=== PATIENT | female | born 1930 | race Caucasian/White ===

== ENCOUNTER → 2018-10-18 | Outpatient (CLI) | payer MEDICARE ==
[2018-10-18 16:16] LABS: BILIRUBIN,URINE NEGATIVE (NEGATIVE); CLARITY,URINE CLEAR; COLOR,URINE YELLOW; GLUCOSE, URINE (UA) NEGATIVE (NEGATIVE); KETONES,URINE NEGATIVE (NEGATIVE); LEUKOCYTE ESTERASE ,URINE NEGATIVE (NEGATIVE); NITRITE,URINE NEGATIVE (NEGATIVE); PH,URINE 5.5 (5-9); PROTEIN,URINE NEGATIVE (NEGATIVE); UROBILINOGEN,URINE 0.2 MG/DL (NORMAL)
== END ==
LOC: LAB FS 15:48
PROVIDERS: ATTEND Pediatrics
DX: R82.90 Unspecified abnormal findings in urine (principal); R32 Unspecified urinary incontinence
CPT/HCPCS: 81000

== ENCOUNTER → 2019-03-14 | Outpatient (CLI) | payer MEDICARE ==
[2019-03-14 14:23] LABS: BACTERIA,URINE NEGATIVE /HPF; BILIRUBIN,URINE NEGATIVE (NEGATIVE); CLARITY,URINE CLEAR; COLOR,URINE YELLOW; GLUCOSE, URINE (UA) NEGATIVE (NEGATIVE); KETONES,URINE NEGATIVE (NEGATIVE); LEUKOCYTE ESTERASE ,URINE NEGATIVE (NEGATIVE); NITRITE,URINE NEGATIVE (NEGATIVE); PH,URINE 5.5 (5-9); PROTEIN,URINE NEGATIVE (NEGATIVE); WBC,URINE 0-2 /HPF
== END ==
LOC: LAB FS 14:00
PROVIDERS: ATTEND Pediatrics
DX: R30.0 Dysuria (principal); R53.1 Weakness
CPT/HCPCS: 81000

== ENCOUNTER → 2019-05-08 | Outpatient (CLI) | payer MEDICARE ==
--- NOTE | 2019-05-08 14:29 | Diagnostic Imaging Report ---
INDICATION: Bilateral knee pain. COMPARISON: None. FINDINGS: Multiple radiographic views of the bilateral knees were obtained. There is no evidence of acute fracture or dislocation on either side. Osseous structures are intact. Joint spaces are maintained. There are mild osteoarthritic changes consisting of joint space narrowing with osteophyte formations. These changes appear greatest involving the patellar trochlear joint on the right and the lateral tibiofemoral compartment on the left. There is no large joint effusion. No unexpected radiopaque foreign bodies are seen. IMPRESSION: 1. No acute fracture or dislocation of either knee. 2. Mild osteoarthritic changes. Dictated by: Dictated on workstation # [id number]
== END ==
LOC: RAD FS 13:55
PROVIDERS: ATTEND Pediatrics
DX: M17.0 Bilateral primary osteoarthritis of knee (principal)

== ENCOUNTER 2020-06-08 12:56 | Emergency (ER) | payer MEDICARE ==
--- NOTE | 2020-06-08 13:05 | ED General ---
General Chief Complaint: Unresponsive Stated Complaint: UNRESPONSIVE; LOW GLUCOSE Source of Information: Patient, EMS History of Present Illness Date Seen by Provider: Jun 08, 2020 Time Seen by Provider: 13:02 Initial Comments 89-year-old female brought in by EMS due to an episode of decreased responsiveness. EMS was called out because patient was staring off and nonresponsive. When EMS got patient loaded into the ambulance and checked her blood sugar they had a blood sugar reading of 15 and 16. They gave her an amp of D50. Recheck shows blood sugar 240. After her treatment patient is now back to her baseline. Patient reports that she feels fine. Report from custodial was that she's slowly declined all morning. Patient does not believe she ate breakfast or lunch. Patient denies feeling ill recently. Patient does not have any known diabetic her blood sugar issues and does not take insulin. Allergies and Home Medications Allergies Coded Allergies: Penicillins (Verified Allergy, Unknown, 06/08/20) Patient Home Medication List Home Medication List Reviewed: Yes Review of Systems Review of Systems Constitutional: see HPI; No chills, No fever EENTM: no symptoms reported Respiratory: no symptoms reported Cardiovascular: no symptoms reported Gastrointestinal: no symptoms reported Genitourinary: no symptoms reported Musculoskeletal: no symptoms reported Skin: no symptoms reported Psychiatric/Neurological: See HPI Hematologic/Lymphatic: No Symptoms Reported Past Ndwdbyl-Vxakea-Xwvjuz Hx Past Med/Social Hx: Reviewed Nursing Past Med/Soc Hx Physical Exam Vital Signs Vital Signs - First Documented 06/08/20 13:01 Temp 36.1 Pulse 77 Resp 20 Pulse Ox 98 O2 Delivery Room Air Capillary Refill : Height, Weight, BMI Height: '" Weight: lbs. oz. 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 II-XII Norm as Tested Skin: Normal Color, Warm/Dry Progress/Results/Core Measures Suspected Sepsis SIRS Temperature: Pulse: Respiratory Rate: Laboratory Tests 06/08/20 13:10: White Blood Count 8.1 Blood Pressure / Mean: Laboratory Tests 06/08/20 13:10: Creatinine 1.71H, Platelet Count 240, Total Bilirubin 0.3 Results/Orders Lab Results Laboratory Tests Test 06/08/20 13:05 06/08/20 13:10 06/08/20 13:25 06/08/20 13:45 Range/Units Glucometer 123 H 103 99 70-110 MG/DL White Blood Count 8.1 4.3-11.0 10^3/uL Red Blood Count 3.58 L 4.35-5.85 10^6/uL Hemoglobin 11.0 L 11.5-16.0 G/DL Hematocrit 34 L 35-52 % Mean Corpuscular Volume 94 80-99 FL Mean Corpuscular Hemoglobin 31 25-34 PG Mean Corpuscular Hemoglobin Concent 33 32-36 G/DL Red Cell Distribution Width 12.9 10.0-14.5 % Platelet Count 240 130-400 10^3/uL Mean Platelet Volume 10.7 H 7.4-10.4 FL Immature Granulocyte % (Auto) 1 % Neutrophils (%) (Auto) 73 42-75 % Lymphocytes (%) (Auto) 20 12-44 % Monocytes (%) (Auto) 6 0-12 % Eosinophils (%) (Auto) 1 0-10 % Basophils (%) (Auto) 0 0-10 % Neutrophils # (Auto) 5.9 1.8-7.8 X 10^3 Lymphocytes # (Auto) 1.6 1.0-4.0 X 10^3 Monocytes # (Auto) 0.5 0.0-1.0 X 10^3 Eosinophils # (Auto) 0.1 0.0-0.3 10^3/uL Basophils # (Auto) 0.0 0.0-0.1 10^3/uL Immature Granulocyte # (Auto) 0.0 0.0-0.1 10^3/uL Sodium Level 139 135-145 MMOL/L Potassium Level 4.4 3.6-5.0 MMOL/L Chloride Level 104 98-107 MMOL/L Carbon Dioxide Level 24 21-32 MMOL/L Anion Gap 11 5-14 MMOL/L Blood Urea Nitrogen 32 H 7-18 MG/DL Creatinine 1.71 H 0.60-1.30 MG/DL Estimat Glomerular Filtration Rate 28 BUN/Creatinine Ratio 19 Glucose Level 151 H 70-105 MG/DL Calcium Level 9.3 8.5-10.1 MG/DL Corrected Calcium 9.6 8.5-10.1 MG/DL Total Bilirubin 0.3 0.1-1.0 MG/DL Aspartate Amino Transf (AST/SGOT) 38 H 5-34 U/L Alanine Aminotransferase (ALT/SGPT) 21 0-55 U/L Alkaline Phosphatase 111 40-136 U/L Total Protein 6.5 6.4-8.2 GM/DL Albumin 3.6 3.2-4.5 GM/DL Test 06/08/20 14:09 06/08/20 14:55 06/08/20 15:37 06/08/20 15:54 Range/Units Glucometer 71 95 50 *L 83 70-110 MG/DL Test 06/08/20 16:24 06/08/20 16:53 06/08/20 17:02 Range/Units Glucometer 59 *L 50 *L 133 H 70-110 MG/DL My Orders Orders - HANEY,TELMA L DO Accucheck Stat ONCE (06/08/20 13:05) Ekg Tracing (06/08/20 13:05) Cbc With Automated Diff (06/08/20 13:05) Comprehensive Metabolic Panel (06/08/20 13:05) Ua Culture If Indicated (06/08/20 13:05) D5 1/2 Ns 1000 Ml Iv Solution (Dextrose (06/08/20 14:15) D50w (Emergency) Syringe (Dextrose 50% 5 (06/08/20 14:15) D50w (Emergency) Syringe (Dextrose 50% 5 (06/08/20 14:07) D50w (Emergency) Syringe (Dextrose 50% 5 (06/08/20 15:45) Dextrose 10% Iv Solution (D10w 250 Ml Iv (06/08/20 16:31) Dextrose 10% Iv Solution (D10w 250 Ml Iv (06/08/20 16:45) D50w (Emergency) Syringe (Dextrose 50% 5 (06/08/20 17:00) Medications Given in ED Current Medications Medications Dose Ordered Sig/Adan Route Start Time Stop Time Status Last Admin Dose Admin Dextrose 25 ml ONCE ONCE IV 06/08/20 14:15 06/08/20 14:16 DC 06/08/20 14:15 25 ML Dextrose 25 ml ONCE ONCE IV 06/08/20 15:45 06/08/20 15:46 DC 06/08/20 15:42 25 ML Dextrose 50 ml ONCE ONCE IV 06/08/20 17:00 06/08/20 17:01 DC 06/08/20 16:45 50 ML Vital Signs/I&O 06/08/20 13:01 Temp 36.1 Pulse 77 Resp 20 B/P (MAP) Pulse Ox 98 O2 Delivery Room Air Capillary Refill : Progress Note : Progress Note Patient's blood sugar was very labile with frequent fluctuations down to the 50s. She was given a couple amps of D50 was started on D5 evidence changed to D10. Due to patient's hypoglycemia with no history of oral glycemic medication or insulin she'll be transferred to her primary care provider Dr. dAler in the [facility] for further observation and treatment. Patient was transferred in stable condition Departure Impression Primary Impression: Hypoglycemia Disposition: XFER SHT-TRM HOSP Condition: Stable Transfer Transfer Reason: Patient preference Time Spoke to Accepting Phy: 16:02 Transfer Facility: [facility] Method of Transfer: EMS Departure-Patient Inst. Referrals: KAMRYN ADLER MD (PCP/Family) Primary Care Physician TELMA HANEY DO Jun 08, 2020 13:04
[2020-06-08 13:18] LABS: HEMATOCRIT 34 % (35-52); MEAN CORPUSCULAR HEMOGLOBIN 31 PG (25-34); MEAN CORPUSCULAR HGB CONC 33 G/DL (32-36); MEAN CORPUSCULAR VOLUME 94 FL (80-99); PLATELET COUNT 240 10^3/uL (130-400); WHITE BLOOD COUNT 8.1 10^3/uL (4.3-11.0)
[2020-06-08 13:19] LABS: BASOPHILS % (AUTO) 0 % (0-10); EOSINOPHILS # (AUTO) 0.1 10^3/uL (0.0-0.3); EOSINOPHILS % (AUTO) 1 % (0-10); LYMPHOCYTES # (AUTO) 1.6 X 10^3 (1.0-4.0); LYMPHOCYTES % (AUTO) 20 % (12-44); MEAN PLATELET VOLUME 10.7 FL (7.4-10.4); MONOCYTES # (AUTO) 0.5 X 10^3 (0.0-1.0); MONOCYTES % (AUTO) 6 % (0-12); NEUTROPHILS # (AUTO) 5.9 X 10^3 (1.8-7.8); NEUTROPHILS % (AUTO) 73 % (42-75)
[2020-06-08 14:02] LABS: POTASSIUM 4.4 MMOL/L (3.6-5.0)
[2020-06-08 14:03] LABS: ALBUMIN 3.6 GM/DL (3.2-4.5); BILIRUBIN,TOTAL 0.3 MG/DL (0.1-1.0); CALCIUM 9.3 MG/DL (8.5-10.1); CREATININE SERUM 1.71 MG/DL (0.60-1.30); TOTAL PROTEIN 6.5 GM/DL (6.4-8.2)
[2020-06-08] MEDS ORDERED: DEXTROSE 50% 50 ML (IMS) SYR ONE (14:07)
[2020-06-08] MEDS ORDERED: DEXTROSE 50% 50 ML (IMS) SYR IV ONE ×3 (14:15→17:00)
[2020-06-08] MEDS ORDERED: D5 1/2 NS 1000 ML IV SOLUTION 1,000 ML IV SCH (14:15)
--- NOTE | 2020-06-08 16:11 | NUR ---
1400: Attempted to call patient's son, Ousmane, to give an update. No answer received to call, message left with number to return phone call. 1610: Again attemped to call patient's son, Ousmane, no answer received to call, message left with number to return phone call.
[2020-06-08] MEDS ORDERED: DEXTROSE 10% IV ONE (16:31)
[2020-06-08] MEDS ORDERED: DEXTROSE 10% IV SOLUTION 250 ML IV SCH (16:45)
[2020-06-08 17:16] VITALS: BP 147/57
== END 2020-06-08 17:12 | disposition short-term general hospital (02) ==
LOC: EDUNIT# 12:56 → ER FS 12:57
DX: E16.2 Hypoglycemia, unspecified (principal); Z88.0 Allergy status to penicillin
CPT/HCPCS: 36415; 80053; 82962; 85025

== ENCOUNTER 2020-07-06 11:13 | Emergency (ER) | payer MEDICARE ==
[2020-07-06] MEDS ORDERED: FAMOTIDINE 20MG/2ML IV (PEPCID) IVP ONE (11:30)
[2020-07-06] MEDS ORDERED: ONDANSETRON 4 MG/2 ML (SDV) Z0FRAN IVP ONE (11:30)
--- NOTE | 2020-07-06 11:33 | Diagnostic Imaging Report ---
INDICATION: Chest pain. COMPARISON: None. FINDINGS: Single frontal view of the chest demonstrates normal heart size and pulmonary vascularity. The lungs are well aerated and clear. No large pleural effusion or pneumothorax is seen. The visualized osseous structures show no acute abnormalities. There is calcified aortic atherosclerosis. IMPRESSION: No acute cardiopulmonary process. Dictated by: Dictated on workstation # [id number]
--- NOTE | 2020-07-06 11:39 | ED Chest Pain ---
General Chief Complaint: General Problems/Pain Stated Complaint: CHEST PAIN; NAUSEA; ARRHYTHMIA Nursing Triage Note: Staff at [facility] reports patient has advanced dementia, oriented to person only. Staff reports that this morning, patient had walked to the dining room and clutched her chest. Staff states patient's "eyes rolled back in her head and her face turned bright red." Staff states when EMS arrived this morning, patients symptoms had resolved, vital signs were stable and patient refused transport. Staff reports patient walked to the dining room at noon and her symptoms returned, staff states they touched patient's chest and asked if it hurt and that patient replied yes. Nursing Sepsis Screen: No Definite Risk Source: patient, EMS, alf records, old records Exam Limitations: clinical condition (Dementia) History of Present Illness Date Seen by Provider: Jul 06, 2020 Time Seen by Provider: 11:14 Initial Comments This 89-year-old woman presents to the emergency room via EMS from [facility] with reported history as above. Patient has fairly advanced dementia and provides very little history. During assessment and evaluation she appears to have either some lower chest pain or upper abdominal pain. When asked, she denies having pain at this time or states "not too bad". She cannot localize pain when asked. She does claim tenderness in the epigastric region. She denies nausea. Allergies and Home Medications Allergies Coded Allergies: Penicillins (Verified Allergy, Unknown, 06/08/20) Patient Home Medication List Home Medication List Reviewed: Yes Review of Systems Review of Systems Constitutional: no symptoms reported EENTM: No Symptoms Reported Respiratory: No Symptoms Reported Cardiovascular: See HPI Gastrointestinal: See HPI Genitourinary: No Symptoms Reported Musculoskeletal: no symptoms reported Skin: no symptoms reported Psychiatric/Neurological: See HPI Endocrine: No Symptoms Reported Hematologic/Lymphatic: No Symptoms Reported Past Mhsjahc-Bpaxtu-Rpycok Hx Past Med/Social Hx: Reviewed and Corrections made Patient Social History Alcohol Use: Denies Use Smoking Status: Never a Smoker 2nd Hand Smoke Exposure: No Recent Infectious Disease Expo: No Recent Hopitalizations: No Seasonal Allergies Seasonal Allergies: No Past Medical History Surgeries: No Respiratory: No Cardiac: Yes Irregular Heartbeat Neurological: Yes Dementia Genitourinary: No Gastrointestinal: No Musculoskeletal: No Endocrine: No HEENT: No Cancer: No Psychosocial: No Integumentary: No Blood Disorders: Yes (Vitamin B12 deficiency) Physical Exam Vital Signs Vital Signs - First Documented 07/06/20 11:19 Temp 35.8 Pulse 93 Resp 20 B/P (MAP) 125/65 (85) Pulse Ox 94 O2 Delivery Room Air Capillary Refill : Less Than 3 Seconds Height, Weight, BMI Height: '" Weight: lbs. oz. kg; BMI Method: General Appearance: WD/WN, Mild Distress (Appears mildly uncomfortable, anxious) HEENT: PERRL/EOMI, Normal ENT Inspection Neck: Normal Inspection Respiratory: Chest Non Tender, Lungs Clear, Normal Breath Sounds, No Accessory Muscle Use, No Respiratory Distress Cardiovascular: No Edema, No Murmur, Irregularly Irregular Gastrointestinal: Normal Bowel Sounds, Soft; No Distended; Tenderness (Mild in the epigastrium) Extremity: Normal Inspection, Non Tender, No Calf Tenderness, No Pedal Edema Neurologic/Psychiatric: Alert, No Motor/Sensory Deficits, Other (Mildly anxious, disoriented due to baseline dementia) Skin: Normal Color, Warm/Dry Progress/Results/Core Measures Results/Orders Lab Results Laboratory Tests Test 07/06/20 11:26 07/06/20 11:33 07/06/20 13:07 Range/Units White Blood Count 8.6 4.3-11.0 10^3/uL Red Blood Count 4.04 L 4.35-5.85 10^6/uL Hemoglobin 12.4 11.5-16.0 G/DL Hematocrit 39 35-52 % Mean Corpuscular Volume 97 80-99 FL Mean Corpuscular Hemoglobin 31 25-34 PG Mean Corpuscular Hemoglobin Concent 32 32-36 G/DL Red Cell Distribution Width 13.4 10.0-14.5 % Platelet Count 216 130-400 10^3/uL Mean Platelet Volume 10.6 H 7.4-10.4 FL Immature Granulocyte % (Auto) 0 % Neutrophils (%) (Auto) 66 42-75 % Lymphocytes (%) (Auto) 24 12-44 % Monocytes (%) (Auto) 8 0-12 % Eosinophils (%) (Auto) 1 0-10 % Basophils (%) (Auto) 1 0-10 % Neutrophils # (Auto) 5.7 1.8-7.8 X 10^3 Lymphocytes # (Auto) 2.1 1.0-4.0 X 10^3 Monocytes # (Auto) 0.7 0.0-1.0 X 10^3 Eosinophils # (Auto) 0.1 0.0-0.3 10^3/uL Basophils # (Auto) 0.0 0.0-0.1 10^3/uL Immature Granulocyte # (Auto) 0.0 0.0-0.1 10^3/uL Prothrombin Time 13.0 12.2-14.7 SEC INR Comment 1.0 0.8-1.4 Activated Partial Thromboplast Time 26 24-35 SEC Sodium Level 142 135-145 MMOL/L Potassium Level 4.8 3.6-5.0 MMOL/L Chloride Level 107 98-107 MMOL/L Carbon Dioxide Level 21 21-32 MMOL/L Anion Gap 14 5-14 MMOL/L Blood Urea Nitrogen 25 H 7-18 MG/DL Creatinine 1.60 H 0.60-1.30 MG/DL Estimat Glomerular Filtration Rate 30 BUN/Creatinine Ratio 16 Glucose Level 123 H 70-105 MG/DL Calcium Level 9.9 8.5-10.1 MG/DL Corrected Calcium 9.8 8.5-10.1 MG/DL Magnesium Level 2.1 1.6-2.4 MG/DL Total Bilirubin 0.6 0.1-1.0 MG/DL Aspartate Amino Transf (AST/SGOT) 24 5-34 U/L Alanine Aminotransferase (ALT/SGPT) 10 0-55 U/L Alkaline Phosphatase 105 40-136 U/L Myoglobin 100.9 H 10.0-92.0 NG/ML Troponin I < 0.30 < 0.30 <0.30 NG/ML C-Reactive Protein 1.03 H <0.50 MG/DL Total Protein 7.3 6.4-8.2 GM/DL Albumin 4.1 3.2-4.5 GM/DL Lipase 31 8-78 U/L Urine Color YELLOW Urine Clarity SLT CLOUDY Urine pH 6.0 5-9 Urine Specific [place] 1.020 1.016-1.022 Urine Protein NEGATIVE NEGATIVE Urine Glucose (UA) NEGATIVE NEGATIVE Urine Ketones NEGATIVE NEGATIVE Urine Nitrite NEGATIVE NEGATIVE Urine Bilirubin NEGATIVE NEGATIVE Urine Urobilinogen 0.2 < = 1.0 MG/DL Urine Leukocyte Esterase NEGATIVE NEGATIVE Urine RBC (Auto) NEGATIVE NEGATIVE Urine RBC NONE /HPF Urine WBC 0-2 /HPF Urine Squamous Epithelial Cells NONE /HPF Urine Crystals PRESENT H /LPF Urine Amorphous Sediment FEW MARLENY URATES H /LPF Urine Bacteria NEGATIVE /HPF Urine Casts PRESENT /LPF Urine Hyaline Casts 2-5 H /LPF Urine Mucus SMALL H /LPF Urine Culture Indicated NO My Orders Orders - ELSI CASTELLANOS MD Cbc With Automated Diff (07/06/20 11:17) Magnesium (07/06/20 11:17) Chest 1 View Ap/Pa Only (07/06/20 11:17) Ekg Tracing (07/06/20 11:17) Comprehensive Metabolic Panel (07/06/20 11:17) Myoglobin Serum (07/06/20 11:17) Protime With Inr (07/06/20 11:17) Partial Thromboplastin Time (07/06/20 11:17) O2 (07/06/20 11:17) Monitor-Rhythm Ecg Trace Only (07/06/20 11:17) Ed Iv/Invasive Line Start (07/06/20 11:17) Lipase (07/06/20 11:17) Troponin I Fs (07/06/20 11:17) Famotidine Injection (Pepcid Injection) (07/06/20 11:30) Ondansetron Injection (Zofran Injectio (07/06/20 11:30) Ua Culture If Indicated (07/06/20 11:17) Crp Fs (07/06/20 11:17) Ekg Tracing (07/06/20 11:30) Ns Iv 1000 Ml (Sodium Chloride 0.9%) (07/06/20 12:30) Troponin I Fs (07/06/20 13:30) Medications Given in ED Current Medications Medications Dose Ordered Sig/Adan Route Start Time Stop Time Status Last Admin Dose Admin Sodium Chloride 1,000 ml @ 0 mls/hr Q0M ONCE IV 07/06/20 12:30 07/06/20 12:31 DC 07/06/20 13:02 1,000 MLS/HR Vital Signs/I&O 07/06/20 07/06/20 11:19 15:00 Temp 35.8 Pulse 93 97 Resp 20 23 B/P (MAP) 125/65 (85) 119/66 Pulse Ox 94 91 O2 Delivery Room Air Room Air Blood Pressure Mean: 85 Progress Progress Note #1: Time: 11:42 Progress Note Patient is receiving Zofran and Pepcid due to suspicion of GI etiology. 2 EKGs were obtained and both show a sinus arrhythmia with PVCs/PACs. Patient does have a noted history of unspecified arrhythmia. No overt ST elevation. Labs are pending. Progress Note #2: Time: 12:34 Progress Note Patient is alert and talkative at this time. She has no complaints. When I specifically asked about abdominal or chest pain, she states "not too good, not too bad". She exhibited no tenderness on palpation of the abdomen. Orthostatic blood pressure on standing was not significantly changed. She did not exhibit symptoms upon standing. She does have episodic tachycardia when she has multiple premature beats and rapid sequence. I spoke with her primary care provider, Dr. Tatum. He states no known significant cardiac history. We are going to obtain a repeat troponin and administer a liter of IV normal saline. Progress Note #3: Time: 14:33 Progress Note Repeat troponin was unremarkable. We did hydrate the patient with 1 L of IV fluid. We then got her up and walked her about 70 to 80 feet. She did very well with this and was actually singing while walking. She had no further episodes. I discussed the situation with patient's son Mireille. He wanted his brother to him to be made aware of the situation. We have not been able to get in touch with him. I did call Dr. Tatum and discussed the situation with him. He was made aware of the situation and the patient's sinus arrhythmia. He would like her to follow-up in the outpatient setting and based on prior discussions with family does not believe they would want admission for this issue. We are working on discharging her back to the alf. Patient remains happy and comfortable. EKG #1: EKG Time: 11:12 Rate: 101 Comment Probable sinus arrhythmia with PAC present. Minimal ST depression with no ST elevation. EKG #2: EKG Time: 11:28 Rate: 118 Comment Sinus tachycardia with multiple premature beats. No ST elevation. Minimal ST depression. Diagnostic Imaging Diagonstic Imaging: Xray Plain Films/CT/US/NM/MRI: chest Comments Chest x-ray viewed by me and report reviewed. See report below: NAME: YOEL GUZMAN Sampson [facility] REC#: [id number] PT STATUS: REG ER : 1932 PHYSICIAN: ELSI CASTELLANOS MD ADMIT DATE: 07/06/20/ER FS Draft Date of Exam:07/06/20 CHEST 1 VIEW AP/PA ONLY INDICATION: Chest pain. COMPARISON: None. FINDINGS: Single frontal view of the chest demonstrates normal heart size and pulmonary vascularity. The lungs are well aerated and clear. No large pleural effusion or pneumothorax is seen. The visualized osseous structures show no acute abnormalities. There is calcified aortic atherosclerosis. IMPRESSION: No acute cardiopulmonary process. Dictated on workstation # [id number] Dict: 07/06/20 1131 Trans: 07/06/20 1133 [id number] Interpreted by: STEFANIE CHÁVEZ MD Departure Impression Primary Impression: Sinus arrhythmia Additional Impressions: Epigastric discomfort Advanced dementia Disposition: 01 HOME, SELF-CARE Condition: Stable Departure-Patient Inst. Decision time for Depature: 14:21 Referrals: KAMRYN TATUM MD (PCP/Family) Primary Care Physician Patient Instructions: Dementia (DC) Add. Discharge Instructions: Continue current medications and other directed care. Follow-up with Dr. Tatum as soon as possible. Encourage plenty of clear liquids to stay well-hydrated. Return to the emergency room for worsening symptoms. Call for questions or concerns. All discharge instructions reviewed with patient and/or family. Voiced unde rstanding. Copy Copies To 1: KAMRYN TATUM MD, JOSHUA T MD Jul 06, 2020 11:39
[2020-07-06 11:48] LABS: HEMATOCRIT 39 % (35-52); HEMOGLOBIN 12.4 G/DL (11.5-16.0); MEAN CORPUSCULAR HEMOGLOBIN 31 PG (25-34); WHITE BLOOD COUNT 8.6 10^3/uL (4.3-11.0)
[2020-07-06 11:49] LABS: BASOPHILS % (AUTO) 1 % (0-10); EOSINOPHILS # (AUTO) 0.1 10^3/uL (0.0-0.3); EOSINOPHILS % (AUTO) 1 % (0-10); LYMPHOCYTES # (AUTO) 2.1 X 10^3 (1.0-4.0); LYMPHOCYTES % (AUTO) 24 % (12-44); MEAN CORPUSCULAR HGB CONC 32 G/DL (32-36); MEAN CORPUSCULAR VOLUME 97 FL (80-99); MEAN PLATELET VOLUME 10.6 FL (7.4-10.4); MONOCYTES # (AUTO) 0.7 X 10^3 (0.0-1.0); MONOCYTES % (AUTO) 8 % (0-12); NEUTROPHILS # (AUTO) 5.7 X 10^3 (1.8-7.8); NEUTROPHILS % (AUTO) 66 % (42-75); PLATELET COUNT 216 10^3/uL (130-400)
[2020-07-06 12:07] LABS: BILIRUBIN,TOTAL 0.6 MG/DL (0.1-1.0); CALCIUM 9.9 MG/DL (8.5-10.1); CREATININE SERUM 1.6 MG/DL (0.60-1.30); MAGNESIUM 2.1 MG/DL (1.6-2.4); POTASSIUM 4.8 MMOL/L (3.6-5.0)
[2020-07-06 12:08] LABS: ALBUMIN 4.1 GM/DL (3.2-4.5); TOTAL PROTEIN 7.3 GM/DL (6.4-8.2)
[2020-07-06 12:13] LABS: AMORPHOUS SEDIMENT,UR FEW AMOR URATES /LPF; BACTERIA,URINE NEGATIVE /HPF; BILIRUBIN,URINE NEGATIVE (NEGATIVE); CLARITY,URINE SLT CLOUDY; COLOR,URINE YELLOW; GLUCOSE, URINE (UA) NEGATIVE (NEGATIVE); KETONES,URINE NEGATIVE (NEGATIVE); LEUKOCYTE ESTERASE ,URINE NEGATIVE (NEGATIVE); NITRITE,URINE NEGATIVE (NEGATIVE); PROTEIN,URINE NEGATIVE (NEGATIVE); WBC,URINE 0-2 /HPF
[2020-07-06] MEDS ORDERED: NS IV 1000 ML 1,000 ML IV ONE (12:30)
--- NOTE | 2020-07-06 13:49 | NUR ---
Patient ambulated in the hallway with walker and standby assist, heart rate 118 while walking. Heart rate 135-144 briefly after getting back in bed, then down to 98-103.
--- NOTE | 2020-07-06 14:29 | NUR ---
Contacted Jannet at [facility], she has an alternate phone number for Ousmane to be paged at work. Jannet states Ousmane will be able to take patient back to [facility] at 4 pm after he is off work.
[2020-07-06 15:00] VITALS: BP 119/66
== END 2020-07-06 15:17 | disposition home or self-care (01) ==
LOC: EDUNIT# 11:13 → ER FS 11:14
DX: I49.8 Other specified cardiac arrhythmias (principal); R10.13 Epigastric pain; F03.90 Unspecified dementia, unspecified severity, without behavioral disturbance, psychotic disturbance, mood disturbance, and anxiety; F41.9 Anxiety disorder, unspecified; Z88.0 Allergy status to penicillin
CPT/HCPCS: 36415; 71045; 80053; 81000; 83690; 83735; 83874; 84484; 85025; 85610; 85730; 86141; 93041

== ENCOUNTER 2020-07-27 16:57 | Emergency (ER) | payer MEDICARE ==
[2020-07-27 17:07] VITALS: BP 132/62
[2020-07-27 17:21] LABS: BASOPHILS # (AUTO) 0.1 10^3/uL (0.0-0.1); BASOPHILS % (AUTO) 1 % (0-10); EOSINOPHILS # (AUTO) 0.1 10^3/uL (0.0-0.3); EOSINOPHILS % (AUTO) 1 % (0-10); HEMATOCRIT 41 % (35-52); HEMOGLOBIN 13.1 G/DL (11.5-16.0); LYMPHOCYTES # (AUTO) 3.7 X 10^3 (1.0-4.0); LYMPHOCYTES % (AUTO) 40 % (12-44); MEAN CORPUSCULAR HEMOGLOBIN 31 PG (25-34); MEAN CORPUSCULAR HGB CONC 32 G/DL (32-36); MEAN CORPUSCULAR VOLUME 95 FL (80-99); MEAN PLATELET VOLUME 10.4 FL (7.4-10.4); MONOCYTES # (AUTO) 0.6 X 10^3 (0.0-1.0); MONOCYTES % (AUTO) 7 % (0-12); NEUTROPHILS # (AUTO) 4.7 X 10^3 (1.8-7.8); NEUTROPHILS % (AUTO) 51 % (42-75); PLATELET COUNT 244 10^3/uL (130-400); WHITE BLOOD COUNT 9.3 10^3/uL (4.3-11.0)
[2020-07-27 17:35] LABS: BILIRUBIN,TOTAL 0.4 MG/DL (0.1-1.0); CALCIUM 9.7 MG/DL (8.5-10.1); CREATININE SERUM 1.72 MG/DL (0.60-1.30); POTASSIUM 4.3 MMOL/L (3.6-5.0)
--- NOTE | 2020-07-27 17:35 | ED General ---
General Chief Complaint: General Problems/Pain Stated Complaint: AMS,SOA Nursing Triage Note: PT WAS BROUGHT IN BY EMS FOR ALTERED MENTAL STATUS, WHICH PT HAS ADVANCED DEMENTIA. THE [facility] REPORTS THE PT SLUMPED OVER IN HER CHAIR SHORTLY AFTER TELLING THEM SHE WAS SHORT OF BREATH. NH CALLED ER WITH REPORT OF SHORTNESS OF BREATH AND UNABLE TO OBTAIN A BLOOD PRESSURE AND IRREGULAR PULSE. EMS REPORTS THEY TOLD THEM SHE HAD ALTERED MENTAL STATUS. PT DOES NOT APPEAR TO BE SHORT OF AIR AND IS ALERT AND ABLE TO ANSWER QUESTIONS ASKED OF HER. Nursing Sepsis Screen: No Definite Risk Source of Information: Patient History of Present Illness Date Seen by Provider: Jul 27, 2020 Time Seen by Provider: 17:00 Initial Comments 89-year-old female presents via EMS from the half-way where the nurse had stated she had had a change in mental status. Patient with known history of dementia. Also concerned she may have been short of air, although on EMS a rrival patient was awake and alert with normal vital signs and in no distress. Patient without complaint on arrival and due to dementia unable to answer all questions, but denies any pain or concern, just wants to go home. Allergies and Home Medications Allergies Coded Allergies: Penicillins (Verified Allergy, Unknown, 06/08/20) Patient Home Medication List Home Medication List Reviewed: Yes Review of Systems Review of Systems Constitutional: see HPI (unable to obtain complete ROS secondary to pt dementia and inability to answer most questions) Past Wavznrv-Dfvech-Vnkzlw Hx Past Med/Social Hx: Reviewed Nursing Past Med/Soc Hx Patient Social History Alcohol Use: Denies Use Smoking Status: Never a Smoker 2nd Hand Smoke Exposure: No Recent Infectious Disease Expo: No Recent Hopitalizations: No Seasonal Allergies Seasonal Allergies: No Past Medical History Surgeries: No Respiratory: No Cardiac: Yes Irregular Heartbeat Neurological: Yes Dementia Genitourinary: No Gastrointestinal: No Musculoskeletal: No Endocrine: No HEENT: No Cancer: No Psychosocial: No Integumentary: No Blood Disorders: Yes (Vitamin B12 deficiency) Physical Exam Vital Signs Vital Signs - First Documented 07/27/20 17:07 Temp 35.6 Pulse 92 Resp 18 B/P (MAP) 132/62 (85) Pulse Ox 100 O2 Delivery Room Air Capillary Refill : Less Than 3 Seconds Height, Weight, BMI Height: '" Weight: lbs. oz. kg; BMI Method: General Appearance: No Apparent Distress, WD/WN Eyes: Bilateral Eye Normal Inspection, Bilateral Eye PERRL, Bilateral Eye EOMI HEENT: PERRL/EOMI, Normal ENT Inspection Neck: Full Range of Motion, Normal Inspection, Supple Respiratory: Chest Non Tender, Lungs Clear, Normal Breath Sounds Cardiovascular: Regular Rate, Rhythm, No Edema, No Gallop Gastrointestinal: Normal Bowel Sounds, Non Tender, Soft Back: Normal Inspection, No CVA Tenderness, No Vertebral Tenderness Extremity: Normal Capillary Refill, Non Tender, No Calf Tenderness Neurologic/Psychiatric: Alert, No Motor/Sensory Deficits, Normal Mood/Affect Skin: Normal Color, Warm/Dry Progress/Results/Core Measures Suspected Sepsis Recent Fever Within 48 Hours: No Infection Criteria Present: None New/Unexplained Altered Menta: No Sepsis Screen: No Definite Risk SIRS Temperature: Pulse: 92 Respiratory Rate: 18 Laboratory Tests 07/27/20 17:05: White Blood Count 9.3 Blood Pressure 132 /62 Mean: 85 Laboratory Tests 07/27/20 17:05: Creatinine 1.72H, Platelet Count 244, Total Bilirubin 0.4 Results/Orders Lab Results Laboratory Tests Test 07/27/20 17:05 Range/Units White Blood Count 9.3 4.3-11.0 10^3/uL Red Blood Count 4.27 L 4.35-5.85 10^6/uL Hemoglobin 13.1 11.5-16.0 G/DL Hematocrit 41 35-52 % Mean Corpuscular Volume 95 80-99 FL Mean Corpuscular Hemoglobin 31 25-34 PG Mean Corpuscular Hemoglobin Concent 32 32-36 G/DL Red Cell Distribution Width 13.5 10.0-14.5 % Platelet Count 244 130-400 10^3/uL Mean Platelet Volume 10.4 7.4-10.4 FL Immature Granulocyte % (Auto) 0 % Neutrophils (%) (Auto) 51 42-75 % Lymphocytes (%) (Auto) 40 12-44 % Monocytes (%) (Auto) 7 0-12 % Eosinophils (%) (Auto) 1 0-10 % Basophils (%) (Auto) 1 0-10 % Neutrophils # (Auto) 4.7 1.8-7.8 X 10^3 Lymphocytes # (Auto) 3.7 1.0-4.0 X 10^3 Monocytes # (Auto) 0.6 0.0-1.0 X 10^3 Eosinophils # (Auto) 0.1 0.0-0.3 10^3/uL Basophils # (Auto) 0.1 0.0-0.1 10^3/uL Immature Granulocyte # (Auto) 0.0 0.0-0.1 10^3/uL Sodium Level 143 135-145 MMOL/L Potassium Level 4.3 3.6-5.0 MMOL/L Chloride Level 106 98-107 MMOL/L Carbon Dioxide Level 21 21-32 MMOL/L Anion Gap 16 H 5-14 MMOL/L Blood Urea Nitrogen 27 H 7-18 MG/DL Creatinine 1.72 H 0.60-1.30 MG/DL Estimat Glomerular Filtration Rate 28 BUN/Creatinine Ratio 16 Glucose Level 140 H 70-105 MG/DL Calcium Level 9.7 8.5-10.1 MG/DL Corrected Calcium 9.7 8.5-10.1 MG/DL Total Bilirubin 0.4 0.1-1.0 MG/DL Aspartate Amino Transf (AST/SGOT) 30 5-34 U/L Alanine Aminotransferase (ALT/SGPT) 12 0-55 U/L Alkaline Phosphatase 119 40-136 U/L Total Protein 7.6 6.4-8.2 GM/DL Albumin 4.0 3.2-4.5 GM/DL My Orders Orders - KAIA OCONNELL DO Cbc With Automated Diff (07/27/20 17:08) Comprehensive Metabolic Panel (07/27/20 17:08) Vital Signs/I&O 07/27/20 17:07 Temp 35.6 Pulse 92 Resp 18 B/P (MAP) 132/62 (85) Pulse Ox 100 O2 Delivery Room Air Capillary Refill : Less Than 3 Seconds Blood Pressure Mean: 85 Departure Impression Primary Impression: Episodic weakness Additional Impression: Dementia Qualified Codes: F03.90 - Unspecified dementia without behavioral disturbance Disposition: 01 HOME, SELF-CARE (back to NH) Condition: Stable Departure-Patient Inst. Decision time for Depature: 17:40 Referrals: KAMRYN ADLER MD (PCP/Family) Primary Care Physician Add. Discharge Instructions: Follow up with Dr Adler in 1 week if not improving, sooner if worse. All discharge instructions reviewed with patient and/or family. Voiced understanding. KAIA OCONNELL DO Jul 27, 2020 17:35
[2020-07-27 17:36] LABS: TOTAL PROTEIN 7.6 GM/DL (6.4-8.2)
== END 2020-07-27 17:53 | disposition home or self-care (01) ==
LOC: EDUNIT# 16:57 → ER FS 16:58
DX: R53.1 Weakness (principal); F03.90 Unspecified dementia, unspecified severity, without behavioral disturbance, psychotic disturbance, mood disturbance, and anxiety; Z88.0 Allergy status to penicillin
CPT/HCPCS: 36415; 80053; 85025

== ENCOUNTER 2020-07-29 05:56 | Emergency (ER) | payer MEDICARE ==
[~2020-07-29] VITALS: Ht 167.7 cm; Wt 100.0 kg
[2020-07-29 06:34] VITALS: BP 0/0
--- NOTE | 2020-07-29 06:39 | ED CPR ---
HPI-CPR General Chief Complaint: Code Blue Stated Complaint: CODE BLUE Nursing Triage Note: PT ARRIVED VIA [facility] WITH CODE BLUE IN PROGRESS. EMS REPORTS PT LAST KNOWN WELL TIME WAS 15 MINUTES PRIOR TO EMS ARRIVAL. PER EMS, 3 ROUNDS OF EPI ADMINISTERED WITH NO RETURN OF PULSE. CPR IN PROGRESS UPON ARRIVAL. CPR CONTINUED IN PT ROOM. Sepsis Screen: No Definite Risk Source of Information: EMS, [facility] Records, Old Records History of Present Illness Date Seen by Provider: Jul 29, 2020 Time Seen by Provider: 05:56 Initial Comments 89 yo Female presenting from [facility] as a Code blue. EMS was activated when the patient was found to be non breathing and no pulse. When EMS arrived patient was in asystole and had no spontaneous respiratory effort. She was intubated and had an IV placed and started on ACLS protocols for ACLS. On the Monitor she was in asystole so no shock advised on AED portion of the monitor and given Epinephrine x 3 doses while she was being ventilated by ETT. She continued to be given CPR and follow the ACLS protocols en route to ED. On arrival to the ED she was still in asystole. CPR was continued on arrival to circulate last dose of epinephrine administered by EMS but she remained in asystole and it was deemed futile to continue as her pupils were fixed and dilat ed and she was not responding to resuscitation efforts. She was pronounced at 0600. Allergies and Home Medications Allergies Coded Allergies: Penicillins (Verified Allergy, Unknown, 06/08/20) Patient Home Medication List Home Medication List Reviewed: Yes Review of Systems Review of Systems Constitutional: no symptoms reported Other Comments Unable to obtain ROS as pt was unresponsive and actively being coded on arrival to ED. Past Irtspaa-Auynoq-Dciruo Hx Past Med/Social Hx: Reviewed Nursing Past Med/Soc Hx Patient Social History Alcohol Use: Denies Use Smoking Status: Never a Smoker 2nd Hand Smoke Exposure: No Recent Infectious Disease Expo: No Recent Hopitalizations: No Seasonal Allergies Seasonal Allergies: No Past Medical History Surgeries: No Respiratory: No Cardiac: Yes Irregular Heartbeat Neurological: Yes Dementia Genitourinary: No Gastrointestinal: No Musculoskeletal: No Endocrine: No HEENT: No Cancer: No Psychosocial: No Integumentary: No Blood Disorders: Yes (Vitamin B12 deficiency) Physical Exam Vital Signs Vital Signs - First Documented 07/29/20 05:56 Temp 35.0 Pulse 0 Resp 0 B/P (MAP) 0/0 (0) Pulse Ox 98 O2 Delivery Ambu Bag Capillary Refill : NONE Height, Weight, BMI Height: '" Weight: lbs. oz. kg; 35.00 BMI Method: General Appearance: Other (unresponsive and undergoing CPR ) HEENT: Moist Mucous Membranes, Other (pupils fixed and dilated, ETT in place) Respiratory: Other (equal breath sounds with ventilations through ETT ) Cardiovascular: Other (asystole on monitor and no palpable pulse on exam in extremities. no audible heartbeat on auscultation of heart) Gastrointestinal: No Pulsatile Mass, Soft Neurologic/Psychiatric: Other (unresponsive and being actively coded) Skin: Warm/Dry Progress/Results/Core Measures Results/Orders Vital Signs/I&O 07/29/20 05:56 Temp 35.0 Pulse 0 Resp 0 B/P (MAP) 0/0 (0) Pulse Ox 98 O2 Delivery Ambu Bag Blood Pressure Mean: 0 Progress Progress Note : Progress Note On arrival to the ED she was still in asystole. CPR was continued on arrival to circulate last dose of epinephrine administered by EMS but she remained in asystole and it was deemed futile to continue as her pupils were fixed and dilated and she was not responding to resuscitation efforts. She was pronounced at 0600. Son, Ousmane Carr, notified as he was in waiting room and had been on scene when the patient had been taken by EMS to the ED. Dr. Kamryn Adler, patient's PCP, notified at 0629. Departure Impression Primary Impression: Cardiac arrest Additional Impression: Unsuccessful cardiopulmonary resuscitation Disposition: 20 (0600) Condition: (0600) Departure-Patient Inst. Referrals: KAMRYN ADLER MD (PCP/Family) Primary Care Physician SOCRATES STEPHENSON MD Jul 29, 2020 06:39
== END 2020-07-29 08:30 | disposition expired ==
LOC: EDUNIT# 05:56 → ER FS 05:59
DX: I46.9 Cardiac arrest, cause unspecified (principal); Z88.0 Allergy status to penicillin
CPT/HCPCS: 31500